=== PATIENT | male | born 1985 | race Caucasian/White ===

== ENCOUNTER 2020-08-08 19:02 | Emergency (ER) | payer OTHER ==
[2020-08-08] MEDS ORDERED: methylPREDNISolone Sod Succ/PF 125 MG/2 ML VIAL ONE (19:17)
[2020-08-08] MEDS ORDERED: diphenhydrAMINE 50 MG/ML VIAL ONE (19:17)
[2020-08-08] MEDS ORDERED: Famotidine/PF 20 mg/2ml Vial ONE (19:18)
[2020-08-08] MEDS ORDERED: Ketorolac Tromethamine 30 MG/ML VIAL ONE (19:18)
== END 2020-08-08 21:20 | disposition home or self-care (01) ==
LOC: CSHERS 19:02
DX: T78.40XA Allergy, unspecified, initial encounter (principal); K13.0 Diseases of lips
CPT/HCPCS: 96374; 96375; J1200; J1885; J2930; S0028

== ENCOUNTER 2022-05-31 02:03 | Emergency (ER) | payer BC ==
[2022-05-31] MEDS ORDERED: Morphine 4 MG/ML VIAL ONE ×2 (02:40→02:42)
[2022-05-31] MEDS ORDERED: Diazepam 10 MG/2 ML SYRINGE ONE (02:41)
[2022-05-31] MEDS ORDERED: Ketorolac Tromethamine 30 MG/ML VIAL ONE (04:05)
== END 2022-05-31 05:10 | disposition home or self-care (01) ==
LOC: CSHERS 02:03
DX: S39.92XA Unspecified injury of lower back, initial encounter (principal); X50.0XXA Overexertion from strenuous movement or load, initial encounter
CPT/HCPCS: 96372; 99283; J1885; J2270; J3360